=== PATIENT | female | born 1970 | race Caucasian/White ===

== ENCOUNTER 2016-11-23 15:16 | Emergency (ER) | payer SELFPAY ==
[~2016-11-23 15:16] MED LIST: ADVAIR 250/28 DISKU1 IH; ALBUTEROL0.09 MG/A4 IH; BISOPROLOL AND1 TA1 PO; DEXAMETHASONE4 MG PO; EFFEXOR XR150 M1 PO; GLUCOPHAGE PO; IPRATROPIUM BROM3 M1 IH; LAMICTAL150 MG PO; LEVOXYL0.025 MG PO; METFORMIN500 MG PO; NORCO 325 MG-51 TAB PO; SEPTRA DS 8001 TAB PO; SEROQUEL XR400 MG PO; SEROQUEL300 MG PO
[2016-11-23] MEDS ORDERED: MELOXICAM7.5 MG PO (17:58)
== END 2016-11-23 18:05 | disposition home or self-care (01) ==
LOC: ED 15:16
DX: M72.2 Plantar fascial fibromatosis (principal)

== ENCOUNTER → 2018-12-04 | Outpatient (CLI) | payer SELFPAY ==
[2016-11-23 17:46] VITALS: BP 139/76
[~2018-12-04] MED LIST changes: +MELOXICAM7.5 MG PO
[2018-12-04 12:13] LABS: ALBUMIN 4.6 g/dL (3.5-5.0); CALCIUM 9.7 mg/dL (8.4-10.2); TOTAL BILIRUBIN 0.6 mg/dL (0.2-1.3); TOTAL PROTEIN 7.5 g/dL (6.3-8.2)
== END ==
LOC: LAB 11:43
PROVIDERS: Family Medicine
DX: E11.9 Type 2 diabetes mellitus without complications (principal); I10 Essential (primary) hypertension; E03.9 Hypothyroidism, unspecified

== ENCOUNTER 2019-10-29 11:41 | Emergency (ER) | payer BC ==
[~2019-10-29] VITALS: Ht 160 cm; Wt 90.9 kg
[2019-10-29] MEDS ORDERED: LEVOTHYROXINE100 MC1 PO (11:55)
[2019-10-29] MEDS ORDERED: LOPRESSOR 550 MG/TAB PO (11:55)
[2019-10-29 12:31] LABS: EOS # 0.1 (0.04-0.40); HEMATOCRIT 44.1 % (37.0-47.0); HEMOGLOBIN 14.2 g/dL (12.5-16.0); LYMPH# 3.3 (1.50-4.00); MEAN CELL VOLUME 86 fl (78-100); MEAN CORPUSCULAR HEMOGLOBIN 28 pg (27-31); MEAN CORPUSCULAR HGB CONC 32 g/dL (33-37); MEAN PLATELET VOLUME 9.4 fl (7.4-10.4); MONO # 0.5 (0.20-0.80); NEU # 7.1 (1.40-6.50); PLATELET COUNT 326 K/mm3 (130-400); RED BLOOD COUNT 5.14 M/mm3 (4.10-5.30); RED CELL DISTRIBUTION WIDTH 13.9 % (11.5-14.5); WHITE BLOOD COUNT 11.1 K/mm3 (4.8-10.8)
[2019-10-29 12:39] LABS: ALBUMIN 4.3 g/dL (3.5-5.0); POTASSIUM 3.8 mmol/L (3.5-5.1)
[2019-10-29 12:41] LABS: CALCIUM 9.7 mg/dL (8.3-10.5)
[2019-10-29 12:42] LABS: TOTAL PROTEIN 7.6 g/dL (6.4-8.3)
[2019-10-29 12:44] LABS: TOTAL BILIRUBIN 0.4 mg/dL (0.2-1.2)
[2019-10-29 13:14] LABS: URINE APPEARANCE HAZY; URINE COLOR YELLOW
[2019-10-29 13:15] LABS: URINE BILIRUBIN NEGATIVE (NEGATIVE); URINE BLOOD NEGATIVE (NEGATIVE); URINE GLUCOSE NEGATIVE (NEGATIVE); URINE KETONE NEGATIVE (NEGATIVE); URINE LEUKOCYTE ESTERASE TRACE (NEGATIVE); URINE MUCUS PRESENT (NOT PRESENT); URINE NITRATE NEGATIVE (NEGATIVE); URINE PROTEIN(semi-quant) NEGATIVE (NEGATIVE); URINE UROBILINOGEN NORMAL (NORMAL)
[2019-10-29] MEDS ORDERED: MACROBID 100 M100 MG PO ×2 (14:03)
[2019-10-29] MEDS ORDERED: BACTRIM DS TAB1 EACH PO (14:10)
[2019-10-29 14:27] VITALS: BP 156/100
== END 2019-10-29 14:28 | disposition home or self-care (01) ==
LOC: ED 11:41
PROVIDERS: Nurse Practitioner Primary Care
DX: N30.00 Acute cystitis without hematuria (principal); R73.9 Hyperglycemia, unspecified; E03.9 Hypothyroidism, unspecified; Z88.8 Allergy status to other drugs, medicaments and biological substances
CPT/HCPCS: J1885; J2405; J7030

== ENCOUNTER 2020-03-10 14:42 | Emergency (ER) | payer SELFPAY ==
[~2020-03-10 14:42] MED LIST changes: +BACTRIM DS TAB1 EACH PO; +LEVOTHYROXINE100 MC1 PO; +LOPRESSOR 550 MG/TAB PO; +MACROBID 100 M100 MG PO
[2020-03-10] MEDS ORDERED: QUETIAPINE FUM200 M1 PO (15:52)
[2020-03-10] MEDS ORDERED: GLUCOTROL 5M5 MG/TAB PO (15:52)
[2020-03-10 17:13] VITALS: BP 146/89
== END 2020-03-10 17:11 | disposition home or self-care (01) ==
LOC: ED 14:42
DX: S20.212A Contusion of left front wall of thorax, initial encounter (principal); I10 Essential (primary) hypertension; W18.2XXA Fall in (into) shower or empty bathtub, initial encounter; Y92.009 Unspecified place in unspecified non-institutional (private) residence as the place of occurrence of the external cause
CPT/HCPCS: J1885

== ENCOUNTER 2020-06-22 13:56 | Emergency (ER) | payer SELFPAY ==
[~2020-06-22] VITALS: Ht 160 cm; Wt 98.9 kg
[~2020-06-22 13:56] MED LIST changes: +ASPIRIN E.C. 8181 MG PO; +CETIRIZINE HCL10 MG PO; +GLUCOTROL 5M5 MG/TAB PO; +HYDROCHLOROTH12.5 M1 PO; +PREDNISONE20 MG PO; +QUETIAPINE FUM200 M1 PO
[2020-06-22] MEDS ORDERED: QUETIAPINE FUM300 MG PO (14:16)
[2020-06-22] MEDS ORDERED: VENLAFAXINE HCL75 M3 PO (14:20)
[2020-06-22] MEDS ORDERED: LAMICTAL 100MG100 MG PO (14:20)
[2020-06-22 14:39] LABS: EOS # 0.3 (0.04-0.40); EOS % 1.6 % (1.0-5.0); HEMATOCRIT 48.5 % (37.0-47.0); HEMOGLOBIN 15.5 g/dL (12.5-16.0); LYMPH# 4.3 (1.50-4.00); MEAN CELL VOLUME 86 fl (78-100); MEAN CORPUSCULAR HEMOGLOBIN 28 pg (27-31); MEAN CORPUSCULAR HGB CONC 32 g/dL (33-37); MEAN PLATELET VOLUME 9.2 fl (7.4-10.4); MONO # 0.8 (0.20-0.80); PLATELET COUNT 404 K/mm3 (130-400); RED BLOOD COUNT 5.63 M/mm3 (4.10-5.30); WHITE BLOOD COUNT 15.5 K/mm3 (4.8-10.8)
[2020-06-22 14:40] LABS: NEU # 10.1 (1.40-6.50)
[2020-06-22 14:50] LABS: ALBUMIN 4.6 g/dL (3.5-5.0); POTASSIUM 3.4 mmol/L (3.5-5.1)
[2020-06-22 14:51] LABS: CALCIUM 9.7 mg/dL (8.3-10.5)
[2020-06-22 14:52] LABS: TOTAL PROTEIN 8.5 g/dL (6.4-8.3)
[2020-06-22 14:54] LABS: TOTAL BILIRUBIN 0.5 mg/dL (0.2-1.2)
[2020-06-22 16:20] LABS: URINE APPEARANCE CLEAR; URINE COLOR YELLOW; URINE PROTEIN(semi-quant) TRACE mg/dL (NEGATIVE)
[2020-06-22 16:21] LABS: URINE BILIRUBIN NEGATIVE (NEGATIVE); URINE BLOOD NEGATIVE (NEGATIVE); URINE GLUCOSE NEGATIVE (NEGATIVE); URINE KETONE NEGATIVE (NEGATIVE); URINE LEUKOCYTE ESTERASE NEGATIVE (NEGATIVE); URINE MUCUS PRESENT (NOT PRESENT); URINE NITRATE NEGATIVE (NEGATIVE); URINE UROBILINOGEN NORMAL (NORMAL)
[2020-06-22] MEDS ORDERED: BACTRIM DS TAB1 EACH PO (16:52)
[2020-06-22] MEDS ORDERED: KETOROLAC10 MG PO (16:52)
[2020-06-22 17:20] VITALS: BP 130/82
== END 2020-06-22 17:20 | disposition home or self-care (01) ==
LOC: ED 13:56
PROVIDERS: Family Medicine
DX: N12 Tubulo-interstitial nephritis, not specified as acute or chronic (principal); I10 Essential (primary) hypertension; Z90.49 Acquired absence of other specified parts of digestive tract
CPT/HCPCS: J0696; Q9967

== ENCOUNTER → 2020-07-08 | Outpatient (CLI) | payer SELFPAY ==
[2020-06-22 17:20] VITALS: BP 130/82
[~2020-07-08] MED LIST changes: +KETOROLAC10 MG PO; +LAMICTAL 100MG100 MG PO; +QUETIAPINE FUM300 MG PO; +VENLAFAXINE HCL75 M3 PO
== END ==
LOC: LAB 16:44
DX: D72.829 Elevated white blood cell count, unspecified (principal)

== ENCOUNTER → 2020-08-16 | Outpatient (CLI) | payer OTHER | LOC: MAMMO 15:04 | DX: Z12.31 Encounter for screening mammogram for malignant neoplasm of breast (principal) ==